=== PATIENT | male | born 1960 | race African-American/Black ===

== ENCOUNTER 2023-05-01 18:39 | Emergency (ER) | payer OTHER ==
[2023-05-01] MEDS ORDERED: Lidocaine 1% PF 5 ML VIAL ONE (18:57)
[2023-05-01] MEDS ORDERED: Bacitracin 1 PK ONE (19:25)
== END 2023-05-01 19:59 | disposition home or self-care (01) ==
LOC: BURERS 18:39
DX: S01.112A Laceration without foreign body of left eyelid and periocular area, initial encounter (principal); I10 Essential (primary) hypertension; W01.0XXA Fall on same level from slipping, tripping and stumbling without subsequent striking against object, initial encounter
CPT/HCPCS: 12013; 70450

== ENCOUNTER 2024-11-07 09:20 | Outpatient (CLI) | payer OTHER | END 2024-11-07 09:21 | disposition home or self-care (01) | LOC: BURRAD 09:20 | PROVIDERS: ATTEND Nurse Practitioner Family | DX: M25.551 Pain in right hip (principal); M54.50 Low back pain, unspecified; M47.816 Spondylosis without myelopathy or radiculopathy, lumbar region; M47.817 Spondylosis without myelopathy or radiculopathy, lumbosacral region; L84 Corns and callosities; M21.851 Other specified acquired deformities of right thigh; Z98.890 Other specified postprocedural states | CPT/HCPCS: 72100 ==

== ENCOUNTER 2024-12-08 11:08 | Emergency (ER) | payer OTHER ==
[2024-12-08] MEDS ORDERED: HYDROcodone/Acetaminophen 5/325 mg Tablet ONE (11:31)
[2024-12-08] MEDS ORDERED: predniSONE 20 MG TAB ONE (12:39)
== END 2024-12-08 12:32 | disposition home or self-care (01) ==
LOC: BURERS 11:08
DX: S29.012A Strain of muscle and tendon of back wall of thorax, initial encounter (principal); I10 Essential (primary) hypertension; I25.2 Old myocardial infarction; X50.9XXA Other and unspecified overexertion or strenuous movements or postures, initial encounter
CPT/HCPCS: 71045; J7512